=== PATIENT | female | born 1995 | race Two or more races ===

== ENCOUNTER 2021-02-23 12:20 | Observation (INO) | payer OTHER, MEDICAID ==
[~2021-02-23] VITALS: Ht 177.8 cm; Wt 120.2 kg
[2021-02-23] MEDS ORDERED: PREN-96 PO (12:45)
[2021-02-23] MEDS ORDERED: TERBUTALINE SULFATE 1 MG/ML 1ML VIAL SC SCH (13:00)
== END 2021-02-23 14:10 | disposition home or self-care (01) ==
LOC: LDRP 12:20
PROVIDERS: ADMIT Obstetrics & Gynecology; ATTEND Obstetrics & Gynecology
DX: O26.893 Other specified pregnancy related conditions, third trimester (principal); R10.9 Unspecified abdominal pain; O9A.213 Injury, poisoning and certain other consequences of external causes complicating pregnancy, third trimester; S80.211A Abrasion, right knee, initial encounter; S50.312A Abrasion of left elbow, initial encounter; Z3A.32 32 weeks gestation of pregnancy; W19.XXXA Unspecified fall, initial encounter; Y93.89 Activity, other specified; Y92.89 Other specified places as the place of occurrence of the external cause
CPT/HCPCS: 59025; 76815; 81002; G0378; G0379